=== PATIENT | male | born 1950 | race Caucasian/White ===

== ENCOUNTER 2021-07-16 19:49 | Emergency (ER) | payer MEDICARE ==
[~2021-07-16] VITALS: Ht 177.8 cm; Wt 104.3 kg
--- NOTE | 2021-07-16 20:10 | NUR ---
DR. KETAN Campbell AT BEDSIDE, MSE IN PROGRESS.
--- NOTE | 2021-07-16 20:10 | NUR ---
TX BIB RA 83 FROM HOME FOR ETOH, HIGH BLOOD SUGAR AND GENERALIZED WEAKNESS. PT A/O X3, NLO SOB OR LABORED BREATHING, AFEBRILE. CLEAR SPEECH, COMPLETE SENTENCES, ABLE TO MOVE ALL EXTREMITIES WITHOUT DEFICIT. DENIES CP/PRESSURE. NO GI/ DISTRESS.
--- NOTE | 2021-07-16 20:13 | NUR ---
LAB AT BEDSIDE.
[2021-07-16] MEDS ORDERED: IV NORMAL SALINE 500 ML BAG IV ONE (20:15)
[2021-07-16] MEDS ORDERED: ROSU40TA23 PO (20:16)
[2021-07-16] MEDS ORDERED: METF-442 PO (20:19)
[2021-07-16] MEDS ORDERED: EZET10TA15 PO (20:19)
[2021-07-16] MEDS ORDERED: HYDR25TA4 PO (20:19)
[2021-07-16] MEDS ORDERED: LOSA100T3 PO (20:19)
[2021-07-16] MEDS ORDERED: ALLO100T PO (20:19)
[2021-07-16] MEDS ORDERED: NEBI20TA2 PO (20:19)
[2021-07-16] MEDS ORDERED: FENO134C PO (20:19)
[2021-07-16] MEDS ORDERED: GLIP10TA11 PO (20:19)
[2021-07-16 20:28] LABS: HEMATOCRIT 44.9 % (36.7-47.1); MEAN CORPUSCULAR HEMOGLOBIN 33.5 uug (23.8-33.4); MEAN CORPUSCULAR VOLUME 98.3 fL (73.0-96.2); PLATELET COUNT (AUTO) 215 K/uL (152-348)
--- NOTE | 2021-07-16 20:32 | NUR ---
ASSISTED PT TO USE URINAL, NO DIFFICULTY URINATING. DENIES ANY ACEVEDO/DISCOMFORT UPON URINATION.
--- NOTE | 2021-07-16 20:41 | NUR ---
PT BEING TAKEN DOWN FOR CT/XRAYS.
[2021-07-16 20:47] LABS: ETHANOL 125 MG/DL (0-0)
[2021-07-16 20:48] LABS: ALANINE AMINOTRANSFERASE 21 U/L (16-63); ALKALINE PHOSPHATASE 101 U/L (50-136); ASPARTATE AMINOTRANSFERASE 8 U/L (15-37); BILIRUBIN,TOTAL 0.6 mg/dL (0.2-1.0); CARBON DIOXIDE 19 mmol/L (21-32); CHLORIDE 93 mmol/L (98-107); CREATININE 2.1 mg/dL (0.6-1.3); POTASSIUM 4.4 mmol/L (3.5-5.1); TOTAL PROTEIN, SERUM 7.7 g/dL (6.4-8.2); UREA NITROGEN, BLOOD 19 mg/dL (7-18)
[2021-07-16 20:50] LABS: BILIRUBIN,DIRECT 0.1 mg/dL (0.0-0.2)
[2021-07-16 20:51] LABS: GLUCOSE 660 mg/dL (74-106)
--- NOTE | 2021-07-16 21:02 | NUR ---
PT RETURNED FROM CT/XRAY.
[2021-07-16] MEDS ORDERED: POTASSIUM CHLORIDE 20 MEQ TAB.PRT.SR PO ONE (21:15)
[2021-07-16] MEDS ORDERED: INSULIN REGULAR, HUMAN 10 UNIT in IV NORMAL SALINE 100 ML IV ONE ×2 (21:15→21:45)
[2021-07-16] MEDS ORDERED: levoFLOXacin 750 MG/D5W 150 ML PIGGYBACK IV ONE (21:15)
--- NOTE | 2021-07-16 21:32 | NUR ---
PT TAKEN DOWN FOR ANOTHER CT.
[2021-07-16] MEDS ORDERED: POTASSIUM CHLORIDE 20 MEQ TAB.PRT.SR ONE (21:52)
[2021-07-16] MEDS ORDERED: levoFLOXacin 750MG/D5W 150 ML IV ONE (21:52)
--- NOTE | 2021-07-16 22:04 | NUR ---
PT RETURNED FROM CT.
[2021-07-16] MEDS ORDERED: INSULIN REGULAR, HUMAN 300 UNIT/3 ML VIAL IV ONE (22:45)
[2021-07-16] MEDS ORDERED: INSULIN REGULAR, HUMAN 300 UNIT/3 ML VIAL ONE (22:49)
[2021-07-16] MEDS ORDERED: IV NORMAL SALINE 1000 ML BAG IV ONE (23:00)
[2021-07-16 23:34] LABS: *BILIRUBIN,URIN NEGATIVE (NEGATIVE); *CLARITY,URINE CLEAR (CLEAR); *COLOR,URINE YELLOW (YELLOW); *KETONES,URINE 1+ (NEGATIVE); *UROBILINOGEN,URINE 0.2 E.U./dl (NORMAL); LEUKOCYTE ESTERASE ,URINE NEGATIVE (NEGATIVE); NITRITE, URINE NEGATIVE (NEGATIVE)
[2021-07-16 23:46] LABS: *BLOOD, URINE TRACE (NEGATIVE); UGLUCOSE 3+ (NEGATIVE)
[2021-07-16 23:47] LABS: BACTERIA,URINE NONE SEEN /HPF (NONE SEEN); SQUAMOUS EPITHELIAL CELL,UR NONE SEEN /HPF (NONE SEEN); WBC,URINE NONE SEEN /HPF (0-3)
--- NOTE | 2021-07-16 23:53 | NUR ---
PT ABLE TO USE URINAL. URINATED 500 CC OR CLEAR YELLOW URINE.
[2021-07-17] MEDS ORDERED: INSULIN REGULAR, HUMAN 300 UNIT/3 ML VIAL IV ONE ×2 (00:15→02:00)
[2021-07-17] MEDS ORDERED: IV NORMAL SALINE 1000 ML BAG IV ONE ×3 (00:15→01:00)
[2021-07-17] MEDS ORDERED: NEOMY/BACITRA/POLYMYXIN B OINT UD PACKET TP ONE ×2 (01:15→01:26)
[2021-07-17 01:21] LABS: CARBON DIOXIDE 21 mmol/L (21-32); CHLORIDE 103 mmol/L (98-107); CREATININE 1.5 mg/dL (0.6-1.3); POTASSIUM 3.8 mmol/L (3.5-5.1); UREA NITROGEN, BLOOD 17 mg/dL (7-18)
--- NOTE | 2021-07-17 01:22 | NUR ---
LAB AT BEDSIDE.
[2021-07-17] MEDS ORDERED: INSU3INS6 SQ (01:23)
[2021-07-17 01:43] LABS: GLUCOSE 397 mg/dL (74-106)
--- NOTE | 2021-07-17 01:55 | NUR ---
PT ABLE TO USE URINAL. NOTED WITH 550 CC OUTPUT.
--- NOTE | 2021-07-17 02:35 | NUR ---
Patient discharged to home in stable condition. A/O x4 Written and verbal after care instructions given. Patient verbalizes understanding of instructions. Stressed follow up or return to ER for worsening s/s. No N/V/D. Clear speech, completed sentences. Denies GILLIAM/dizziness.
[2021-07-17 02:37] VITALS: BP 143/87
== END 2021-07-17 02:37 | disposition home or self-care (01) ==
LOC: ER 20:01
DX: E86.0 Dehydration (principal); S00.31XA Abrasion of nose, initial encounter; W19.XXXA Unspecified fall, initial encounter; Y92.013 Bedroom of single-family (private) house as the place of occurrence of the external cause; E87.2 Acidosis; E10.65 Type 1 diabetes mellitus with hyperglycemia; R91.8 Other nonspecific abnormal finding of lung field; Z20.822 Contact with and (suspected) exposure to COVID-19; Z79.4 Long term (current) use of insulin; Z79.84 Long term (current) use of oral hypoglycemic drugs; F10.129 Alcohol abuse with intoxication, unspecified; Y90.6 Blood alcohol level of 120-199 mg/100 ml; F17.210 Nicotine dependence, cigarettes, uncomplicated; S70.02XA Contusion of left hip, initial encounter; S80.212A Abrasion, left knee, initial encounter; S80.211A Abrasion, right knee, initial encounter; Z79.899 Other long term (current) drug therapy
CPT/HCPCS: 36415 ×2; 70450; 71045; 71250; 72125; 72170; 73564 ×2; 80048 ×2; 80076; 80320; 81001; 82009; 82140; 83605 ×2; 83880; 84484; 85025; 85379; 85730; 87040 ×2; 87086; 87426; 93005; 96361; 96365; 96375; 96376; 99291; 99292; 99406; J1815; J1956; 70030-TC; A4663; G0480; J7030; J7040